=== PATIENT | male | born 1960 | race Two or more races ===

== ENCOUNTER 2022-08-07 10:00 | Emergency (ER) | payer MEDICAID ==
[~2022-08-07] VITALS: Ht 167.6 cm; Wt 70.0 kg
[~2022-08-07 10:00] MED LIST: ASPI-1450 PO; ATOR40TA28 PO; CARV3 PO; CLOP75TA60 PO
[2022-08-07] MEDS ORDERED: MECLIZINE HCL 25 MG TABLET PO ONE (10:30)
[2022-08-07] MEDS ORDERED: ONDANSETRON HCL 4 MG TABLET PO ONE (10:30)
[2022-08-07] MEDS ORDERED: ACETAMINOPHEN 500 MG TABLET PO ONE (10:30)
[2022-08-07 10:52] LABS: BASOPHILS % (AUTO) 0.6 % (0.0-2.0); EOSINOPHILS % (AUTO) 10.3 % (1.0-6.0); HEMATOCRIT 44.4 % (41-53); HEMOGLOBIN 15.5 g/dL (13.5-17.5); LYMPHOCYTES # (AUTO) 1.1 K/uL (1.0-4.8); LYMPHOCYTES % (AUTO) 11.4 % (22.0-44.0); MEAN CORPUSCULAR HEMOGLOBIN 31.7 pg (26.0-34.0); MEAN CORPUSCULAR HGB CONC 34.9 G/dL (31.0-37.0); MEAN CORPUSCULAR VOLUME 91 fL (80-100); MONOCYTES # (AUTO) 0.7 K/uL (0.1-1.0); MONOCYTES % (AUTO) 7.2 % (2.0-9.0); NEUTROPHILS % (AUTO) 70.5 % (40.0-70.0); PLATELET COUNT (AUTO) 252 K/uL (150-450); RED BLOOD CELL COUNT(AUTO) 4.89 MIL/uL (4.50-5.90); RED CELL DISTRIBUTION WIDTH 13.2 % (11.5-14.5)
[2022-08-07 12:44] VITALS: BP 146/92
[2022-08-07 12:47] LABS: ANION GAP 10 mmol/L (8-16); CALCIUM, TOTAL 9.5 mg/dL (8.8-10.5); CARBON DIOXIDE 26 mmol/L (22-29); CHLORIDE 101 mmol/L (98-107); CREATININE 0.96 mg/dL (0.60-1.30); GLOMERULAR FILTR. RATE CALC > 60 mL/min (>60); GLUCOSE,RANDOM 123 mg/dL (70-110); POTASSIUM 3.9 mmol/L (3.5-5.1); SODIUM SERUM 137 mmol/L (136-145); UREA NITROGEN, BLOOD 18 mg/dL (7-18)
[2022-08-07 12:53] LABS: ALANINE AMINOTRANSFERASE 40 U/L (12-78); ALBUMIN 4.2 g/dL (3.4-5.0); ALKALINE PHOSPHATASE 85 U/L (46-116); ASPARTATE AMINOTRANSFERASE 27 U/L (15-37); BILIRUBIN,TOTAL 0.5 mg/dL (0.1-1.0); TOTAL PROTEIN, SERUM 8.2 g/dL (6.4-8.2)
[2022-08-07] MEDS ORDERED: ONDA-104 PO (13:09)
[2022-08-07] MEDS ORDERED: ACET-66 PO (13:09)
[2022-08-07] MEDS ORDERED: MECL-134 PO (13:09)
== END 2022-08-07 13:40 | disposition home or self-care (01) ==
LOC: EMS 10:00
DX: R42 Dizziness and giddiness (principal); I25.10 Atherosclerotic heart disease of native coronary artery without angina pectoris; I10 Essential (primary) hypertension; E78.00 Pure hypercholesterolemia, unspecified; Z96.659 Presence of unspecified artificial knee joint; Z98.890 Other specified postprocedural states
CPT/HCPCS: 99285; 70450; 80053; 84484; 85025; 36415; 93005; Q0162

== ENCOUNTER 2023-07-03 07:54 | Emergency (ER) | payer BC, MEDICAID ==
[~2023-07-03] VITALS: Ht 170.2 cm; Wt 68.2 kg
[~2023-07-03 07:54] MED LIST changes: +ACET-66 PO; +MECL-134 PO; +ONDA-104 PO
[2023-07-03 08:02] VITALS: TEMP 98.2
[2023-07-03] MEDS ORDERED: METHOCARBAMOL 500 MG TABLET PO ONE (09:15)
[2023-07-03] MEDS ORDERED: KETOROLAC TROMETHAMINE 60 MG/2 ML VIAL IM ONE (09:15)
[2023-07-03 10:00] VITALS: BP 110/89; PULSE 84; RESP 12
[2023-07-03] MEDS ORDERED: METH-659 PO (10:04)
[2023-07-03] MEDS ORDERED: IBUP-1492 PO (10:04)
== END 2023-07-03 10:35 | disposition home or self-care (01) ==
LOC: EMS 07:54
DX: M54.41 Lumbago with sciatica, right side (principal); F10.20 Alcohol dependence, uncomplicated; Z98.890 Other specified postprocedural states
CPT/HCPCS: 99283; 82962; 96372; J1885